=== PATIENT | female | born 1945 | race Caucasian/White ===

== ENCOUNTER 2017-04-05 11:57 | Inpatient (IN) | payer OTHER ==
[~2017-04-05] VITALS: Ht 157.5 cm; Wt 99.0 kg
[2017-04-05 12:49] LABS: HEMATOCRIT 45.3 % (36.0-46.0); MCH 29.1 PG (29.0-34.0); MCHC 33.1 G/DL (30.0-36.0); MCV 87.8 FL (83-99); MEAN PLAT.VOLUME 10.4 uM^3 (9.5-12.4); PLATELET COUNT 261 K/uL (156-360); RBC DIS.WIDTH-CV 12.8 % (11.8-14.6); RBC DIS.WIDTH-SD 41.4 % (39-53); RED BLOOD COUNT 5.16 M/uL (3.80-5.20); WHITE BLOOD COUNT 7.6 K/uL (4.1-10.2)
[2017-04-05 12:55] LABS: CHLORIDE 109 mEq/L (99-109); POTASSIUM 3.9 mEq/L (3.7-5.4); SODIUM 143 mEq/L (136-147)
[2017-04-05 12:56] LABS: GLUCOSE 131 mg/dL (70-99)
[2017-04-05 12:58] LABS: ANION GAP 13 MEQ/L (2-14)
[2017-04-05 13:01] LABS: UREA NITROGEN (BUN) 13 mg/dL (9-23)
[2017-04-05 13:03] LABS: GFR ESTIMATE (CALCULATED) > 59 mL/min/
[2017-04-05] MEDS ORDERED: LITE COAT ASPI325 M1 PO (14:13)
[2017-04-05 15:27] LABS: HDL CHOLESTEROL 40 MG/DL (Desirable>=50); LDL CHOLESTEROL 135 mg/dL (Desirable<100); NON-HDL CHOLESTEROL 173 mg/dL (Desirable<160); TOTAL CHOLESTEROL 213 mg/dL (Desirable<200); TRIGLYCERIDES 190 MG/DL (Normal: <150)
[2017-04-05 16:18] LABS: Estimated Average Glucose 160 mg/dL (70-123); HEMOGLOBIN A1c (GLYCOHEMOGLOB) 7.2 % HGB (Below 5.7)
[2017-04-05 17:32] VITALS: BP 195/91
[2017-04-05 20:20] VITALS: BP 155/86
[2017-04-05 20:40] VITALS: BP 155/86
[2017-04-05 21:19] LABS: POINT-OF-CARE METER ID UU14188625
[2017-04-05 23:55] VITALS: BP 150/78
[2017-04-06 04:05] VITALS: BP 141/79
[2017-04-06 07:26] LABS: POINT-OF-CARE METER ID UU14188625
[2017-04-06 07:39] VITALS: BP 142/71
[2017-04-06 11:17] VITALS: BP 143/80
[2017-04-06 11:21] LABS: POINT-OF-CARE METER ID UU14188625
[2017-04-06 15:31] VITALS: BP 143/69
[2017-04-06 16:41] LABS: POINT-OF-CARE METER ID UU14188625
[2017-04-06 20:00] VITALS: BP 139/77
[2017-04-07] VITALS: BP 139/66
[2017-04-07 04:11] VITALS: BP 144/68
[2017-04-07 07:22] LABS: POINT-OF-CARE METER ID UU14188625
[2017-04-07 07:28] VITALS: BP 124/68
[2017-04-07 11:09] VITALS: BP 118/56
[2017-04-07 11:16] LABS: POINT-OF-CARE METER ID UU14188625
[2017-04-07] MEDS ORDERED: ONE TOUCH LANC1 EACH MC (11:20)
[2017-04-07] MEDS ORDERED: METFORMIN HCL500 MG PO (11:20)
[2017-04-07] MEDS ORDERED: ASPIR-LOW81 MG PO (11:20)
[2017-04-07] MEDS ORDERED: LISINOPRIL10 MG PO (11:20)
[2017-04-07] MEDS ORDERED: GLUCOMETER MC (11:20)
[2017-04-07] MEDS ORDERED: ATORVASTATIN CA40 MG PO (11:20)
[2017-04-07] MEDS ORDERED: ONE TOUCH ULTR1 EAC4 MC (11:20)
== END 2017-04-07 13:17 | disposition home or self-care (01) | DRG 65 ==
LOC: RME 11:57 → EME 11:57 → EDOF 14:50 → ENRESERV 14:53 → 5WEST 17:12 → ENRESERV 17:26 → 5SOUTH 20:15
PROVIDERS: Emergency Medicine; Hospitalist
DX: I63.131 Cerebral infarction due to embolism of right carotid artery (principal); G81.94 Hemiplegia, unspecified affecting left nondominant side; R29.703 NIHSS score 3; I10 Essential (primary) hypertension; E11.9 Type 2 diabetes mellitus without complications; E78.00 Pure hypercholesterolemia, unspecified; E66.9 Obesity, unspecified; Z68.39 Body mass index [BMI] 39.0-39.9, adult; Z79.82 Long term (current) use of aspirin; Z90.49 Acquired absence of other specified parts of digestive tract; Z82.49 Family history of ischemic heart disease and other diseases of the circulatory system
CPT/HCPCS: 70450; 70551; 71020; 80048; 80061; 82948; 83036; 85027; 93005; 93880; J1650; J1815